=== PATIENT | male | born 1975 | race Caucasian/White ===

== ENCOUNTER 2017-03-07 00:36 | Emergency (ER) | payer MEDICAID ==
[~2017-03-07] VITALS: Ht 170.2 cm; Wt 120.0 kg
[2017-03-07 03:07] LABS: BASOPHILS # (AUTO) 0.03 K/uL (0.00-0.20); BASOPHILS % (AUTO) 0.4 % (0.0-2.0); EOSINOPHILS # (AUTO) 0.21 K/uL (0.00-0.70); EOSINOPHILS % (AUTO) 2.11 % (1.0-6.0); HEMOGLOBIN 14.8 g/dL (13.5-17.5); LYMPHOCYTES # (AUTO) 2.3 K/uL (1.0-4.8); LYMPHOCYTES % (AUTO) 23.2 % (22.0-44.0); MEAN CORPUSCULAR HEMOGLOBIN 30.6 pg (26.0-34.0); MEAN CORPUSCULAR HGB CONC 33.6 G/dL (31.0-37.0); MEAN CORPUSCULAR VOLUME 91 fL (80-100); MONOCYTES # (AUTO) 0.7 K/uL (0.1-1.0); MONOCYTES % (AUTO) 6.4 % (2.0-9.0); NEUTROPHILS # (AUTO) 6.9 K/uL (1.8-7.7); PLATELET COUNT (AUTO) 213 K/uL (150-450); RED BLOOD CELL COUNT(AUTO) 4.84 MIL/uL (4.50-5.90); RED CELL DISTRIBUTION WIDTH 12.8 % (11.5-14.5); WHITE BLOOD COUNT (AUTO) 10.1 K/uL (4.5-11.0)
[2017-03-07 03:16] LABS: ANION GAP 8 mmol/L (8-16); CALCIUM, TOTAL 8.8 mg/dL (8.8-10.5); CARBON DIOXIDE 29 mmol/L (22-29); CHLORIDE 102 mmol/L (98-107); CREATININE 0.87 mg/dL (0.60-1.30); GLOMERULAR FILTR. RATE CALC > 60 mL/min (>60); POTASSIUM 4.2 mmol/L (3.5-5.1); SODIUM SERUM 139 mmol/L (136-145); UREA NITROGEN, BLOOD 11 mg/dL (7-18)
[2017-03-07 03:24] LABS: ALANINE AMINOTRANSFERASE 88 U/L (12-78); ALBUMIN 3.7 g/dL (3.4-5.0); ASPARTATE AMINOTRANSFERASE 41 U/L (15-37); BILIRUBIN,TOTAL 0.4 mg/dL (0.1-1.0); TOTAL PROTEIN, SERUM 7.6 g/dL (6.4-8.2)
[2017-03-07 03:50] VITALS: BP 129/89
== END 2017-03-07 04:24 | disposition home or self-care (01) ==
LOC: EMS 00:37
DX: D69.2 Other nonthrombocytopenic purpura (principal); I10 Essential (primary) hypertension
CPT/HCPCS: 99284

== ENCOUNTER 2017-03-12 14:03 | Emergency (ER) | payer MEDICAID ==
[~2017-03-12] VITALS: Ht 175.3 cm; Wt 100.0 kg
[2017-03-12 16:16] LABS: APPEARANCE,URINE CLEAR (CLEAR); GLUCOSE, URINE (UA) NEGATIVE (NEGATIVE); KETONES,URINE NEGATIVE (NEGATIVE); LEUKOCYTE ESTERASE ,URINE NEGATIVE (NEGATIVE); OCCULT BLOOD,URINE TRACE (NEGATIVE); PROTEIN,URINE NEGATIVE (NEGATIVE)
[2017-03-12] MEDS ORDERED: KETOROLAC TROMETHAMINE 60 MG/2 ML VIAL IM ONE (16:30)
[2017-03-12 16:33] LABS: ADD UA MICROSCOPIC YES; RBC,URINE 0-2 /HPF (0-2); RENAL EPITHELIAL CELLS,URINE Rare /LPF (None Seen); SQUAMOUS EPITHELIAL CELL,UR Moderate /LPF (None Seen)
[2017-03-12 16:49] LABS: INR 1.1 (0.9-1.1); PROTHROMBIN TIME 11.1 SEC (9.4-11.6)
[2017-03-12 17:24] VITALS: BP 151/72
[2017-03-15 23:15] LABS: GC DNA N.A. AMPLIFY Negative (Negative)
== END 2017-03-12 17:57 | disposition home or self-care (01) ==
LOC: EMS 14:06
DX: D69.2 Other nonthrombocytopenic purpura (principal); M25.572 Pain in left ankle and joints of left foot
CPT/HCPCS: 36415; 81001; 85610; 86592; 87491; 87591; 96372; 99284; J1885

== ENCOUNTER 2017-03-30 19:46 | Emergency (ER) | payer MEDICAID ==
[~2017-03-30] VITALS: Ht 170.2 cm; Wt 109.0 kg
[2017-03-30] MEDS ORDERED: NAPR-58 PO (20:24)
[2017-03-30] MEDS ORDERED: HYDROCODONE/ACETAMINOPHEN 5-325 MG TABLET PO ONE (22:00)
[2017-03-30 22:16] LABS: BASOPHILS % (AUTO) 0.6 % (0.0-2.0); EOSINOPHILS % (AUTO) 4.6 % (1.0-6.0); HEMATOCRIT 39.7 % (41-53); HEMOGLOBIN 13.8 g/dL (13.5-17.5); LYMPHOCYTES # (AUTO) 2.7 K/uL (1.0-4.8); LYMPHOCYTES % (AUTO) 27.8 % (22.0-44.0); MEAN CORPUSCULAR HEMOGLOBIN 31.4 pg (26.0-34.0); MEAN CORPUSCULAR HGB CONC 34.7 G/dL (31.0-37.0); MEAN CORPUSCULAR VOLUME 91 fL (80-100); MONOCYTES # (AUTO) 0.7 K/uL (0.1-1.0); MONOCYTES % (AUTO) 6.7 % (2.0-9.0); NEUTROPHILS % (AUTO) 60.3 % (40.0-70.0); PLATELET COUNT (AUTO) 276 K/uL (150-450); RED BLOOD CELL COUNT(AUTO) 4.38 MIL/uL (4.50-5.90); RED CELL DISTRIBUTION WIDTH 12.8 % (11.5-14.5); WHITE BLOOD COUNT (AUTO) 9.9 K/uL (4.5-11.0)
[2017-03-30 22:41] LABS: ANION GAP 8 mmol/L (8-16); CALCIUM, TOTAL 8.8 mg/dL (8.8-10.5); CARBON DIOXIDE 27 mmol/L (22-29); CHLORIDE 104 mmol/L (98-107); CREATININE 1.21 mg/dL (0.60-1.30); GLOMERULAR FILTR. RATE CALC > 60 mL/min (>60); POTASSIUM 3.9 mmol/L (3.5-5.1); SODIUM SERUM 139 mmol/L (136-145); UREA NITROGEN, BLOOD 18 mg/dL (7-18)
[2017-03-30 22:49] LABS: ALANINE AMINOTRANSFERASE 65 U/L (12-78); ALBUMIN 3.6 g/dL (3.4-5.0); ASPARTATE AMINOTRANSFERASE 32 U/L (15-37); BILIRUBIN,TOTAL 0.3 mg/dL (0.1-1.0); TOTAL PROTEIN, SERUM 7.3 g/dL (6.4-8.2)
[2017-03-30] MEDS ORDERED: BACITRACIN 0.9 GM PACKET OINTMENT TP ONE (23:15)
[2017-03-30 23:16] VITALS: BP 129/80
== END 2017-03-30 23:54 | disposition home or self-care (01) ==
LOC: EMS 19:50
DX: D69.0 Allergic purpura (principal); L97.919 Non-pressure chronic ulcer of unspecified part of right lower leg with unspecified severity; J06.9 Acute upper respiratory infection, unspecified
CPT/HCPCS: 99284

== ENCOUNTER 2022-08-10 23:36 | Emergency (ER) | payer SELFPAY ==
[~2022-08-10] VITALS: Ht 177.8 cm; Wt 86.4 kg
[~2022-08-10 23:36] MED LIST: NAPR-1025 PO
[2022-08-11] MEDS ORDERED: PERTUSS(ACELL),DIPH,TET VAC/PF 0.5 ML SYRINGE IM. ONE (01:00)
[2022-08-11] MEDS ORDERED: AMOX TR/POT CLAV 875 MG/125 MG TABLET PO ONE (01:00)
[2022-08-11] MEDS ORDERED: HYDROCODONE/ACETAMINOPHEN 5-325 MG TABLET PO ONE (01:00)
[2022-08-11] MEDS ORDERED: LIDOCAINE 1% 10 ML VIAL SQ ONE (01:00)
[2022-08-11 02:08] VITALS: BP 149/77
== END 2022-08-11 02:21 | disposition home or self-care (01) ==
LOC: EMS 23:37
DX: S01.511A Laceration without foreign body of lip, initial encounter (principal); Y04.8XXA Assault by other bodily force, initial encounter; Y93.89 Activity, other specified; Y92.89 Other specified places as the place of occurrence of the external cause; Y99.8 Other external cause status
CPT/HCPCS: 99283; 12013; 90715; 90471; J3490

== ENCOUNTER 2024-12-20 18:40 | Emergency (ER) | payer MEDICAID, OTHER ==
[~2024-12-20] VITALS: Ht 172.7 cm; Wt 105.9 kg
[2024-12-20 18:49] VITALS: BP 189/106; PULSE 64; RESP 18; TEMP 98.4; O2SAT 96
[2024-12-20] MEDS ORDERED: DOCU-385 PO (18:54)
[2024-12-20] MEDS ORDERED: LISI-893 PO (18:54)
[2024-12-20] MEDS ORDERED: TRAM50TA5 PO (18:54)
[2024-12-20 19:39] LABS: PLATELET COUNT (AUTO) 279 K/uL (150-450); RED BLOOD CELL COUNT(AUTO) 5.57 MIL/uL (4.50-5.90); RED CELL DISTRIBUTION WIDTH 13.0 % (11.5-14.5); WHITE BLOOD COUNT (AUTO) 13.7 K/uL (4.5-11.0)
[2024-12-20 19:45] LABS: CALCIUM, TOTAL 9.3 mg/dL (8.8-10.5); CREATININE 1.16 mg/dL (0.60-1.30); GLOMERULAR FILTR. RATE CALC > 60 mL/min (>60); GLUCOSE,RANDOM 140 mg/dL (70-110); SODIUM SERUM 139 mmol/L (136-145); UREA NITROGEN, BLOOD 15 mg/dL (7-18)
[2024-12-20] MEDS ORDERED: IOHEXOL 350 MG/ML 100 ML VIAL ONE (20:20)
[2024-12-20] MEDS ORDERED: 0.9% SODIUM CHLORIDE 10 ML SYRINGE IVP ONE (20:20)
[2024-12-20] MEDS ORDERED: SODIUM CHLORIDE 0.9% 100 ML ONE (20:20)
[2024-12-20] MEDS: ONDANSETRON HCL 4 MG/2 ML VIAL IVP ONE (20:27)
[2024-12-20 22:13] LABS: APPEARANCE,URINE CLEAR (CLEAR); GLUCOSE, URINE (UA) NEGATIVE (NEGATIVE); LEUKOCYTE ESTERASE ,URINE NEGATIVE (NEGATIVE); NITRATE,URINE NEGATIVE (NEGATIVE); OCCULT BLOOD,URINE NEGATIVE (NEGATIVE)
[2024-12-20 22:17] LABS: SPECIFIC GRAVITIY, URINE 1.030 (1.003-1.030)
[2024-12-20] MEDS: SODIUM CHLORIDE 0.9% 1,000 ML IV ONE (22:26)
[2024-12-20] MEDS: SIMETHICONE 80 MG CHEWABLE TABLET CHEW ONE (22:47)
[2024-12-20] MEDS: POLYETHYLENE GLYCOL 3350 17 GM PACKET PO ONE (22:48)
[2024-12-20] MEDS ORDERED: POLY119P3 PO (23:25)
[2024-12-20] MEDS ORDERED: ONDA-104 PO (23:31)
== END 2024-12-20 22:46 | disposition home or self-care (01) ==
LOC: EMS 18:41
DX: N13.2 Hydronephrosis with renal and ureteral calculous obstruction (principal); K59.00 Constipation, unspecified; Z79.899 Other long term (current) drug therapy; Z98.890 Other specified postprocedural states
CPT/HCPCS: 99285; 74177; 96374; 71045; 96375; 80048; 81003; 83690; 85025; 36415; 93005; Q9967; J1171; J2405; J7030; J7050; 96361